=== PATIENT | male | born 2005 | race African-American/Black ===

== ENCOUNTER 2025-04-24 14:03 | Emergency (ER) | payer MEDICAID, OTHER ==
[~2025-04-24] VITALS: Ht 177.8 cm; Wt 65.0 kg
[2025-04-24 14:04] VITALS: TEMP 97.4
[2025-04-24 14:34] VITALS: BP 126/66; PULSE 81; RESP 18; O2SAT 95
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
[2025-04-24] MEDS ORDERED: IBUP-1454 PO (15:35)
== END 2025-04-24 15:48 | disposition home or self-care (01) ==
LOC: ER 14:03
DX: S39.012A Strain of muscle, fascia and tendon of lower back, initial encounter (principal); Z79.1 Long term (current) use of non-steroidal anti-inflammatories (NSAID); V43.52XA Car driver injured in collision with other type car in traffic accident, initial encounter; Y93.89 Activity, other specified; Y92.488 Other paved roadways as the place of occurrence of the external cause; Y99.8 Other external cause status
CPT/HCPCS: 72100